=== PATIENT | female | born 1960 | race Caucasian/White ===

== ENCOUNTER → 2020-01-17 13:29 | Outpatient (CLI) | payer OTHER, SELFPAY ==
--- NOTE | 2020-01-17 13:37 | XR_ITS ---
PROCEDURE: XR FOOT RT MIN 3V CLINICAL INDICATION: RT FOOT EDEMA COMPARISON: FTL3 FOOT-LT-3 VIEWS from 04/26/2013 FINDINGS: No fracture or dislocation. No lytic or blastic change. There is normal mineralization. The joint spaces are well-preserved. No significant degenerative/arthritic changes. No erosive changes evident. Other findings:None. IMPRESSION: No acute findings. Dictated by: Raz Horne MD 01/17/2020 15:16 Electronically signed by Raz Horne MD in [place] 01/17/2020 15:16
== END ==
PROVIDERS: PCP Family Medicine; Visit Provider Family Medicine
DX: R60.0 Localized edema (principal)
CPT/HCPCS: 73630

== ENCOUNTER → 2021-02-03 12:34 | Outpatient (CLI) | payer OTHER, SELFPAY ==
[2021-02-03 13:12] LABS: Basophils # 0.1 K/mm3 (0-0.2); Basophils % 0.6 % (0.1-2.0); Eosinophils # 0.4 K/mm3 (0.0-0.4); Eosinophils % 3.9 % (0.1-12.0); Hematocrit 43.4 % (37.0-47.0); Hemoglobin 14.8 g/dL (12.2-16.2); Lymphocytes # 2.6 K/mm3 (0.7-4.5); Lymphocytes % 24.3 % (10-50); Mean Corpuscular HGB Conc 34.1 g/dL (31.8-35.4); Mean Corpuscular Hemoglobin 30.2 pg (27.0-31.2); Mean Corpuscular Volume 88.6 fl (81-99); Mean Platelet Volume 7.7 fl (7.4-10.4); Monocytes # 0.8 K/mm3 (0.1-1.0); Monocytes % 7.3 % (1.7-9.3); Neutrophils # 6.8 K/mm3 (1.8-7.8); Neutrophils % 63.8 % (37.0-80.0); Platelet Count 294 K/mm3 (142-424); Red Cell Distribution Width 13.6 % (11.5-17.5); White Blood Count 10.7 K/mm3 (4.8-10.8)
[2021-02-03 13:44] LABS: Anion Gap 11.7 mEq/L (5-15); Blood Urea Nitrogen 21 mg/dl (7-17); Calcium 10.1 mg/dl (8.4-10.2); Carbon Dioxide 30 mmol/L (22.0-30.0); Chloride 102 mmol/L (98-107); Estimated Glomerular Filt Rate 73 ml/min (>60); GFR (African American) 89 ML/MIN (>60); Glucose 96 mg/dl (74-100); Potassium 3.7 mmoL/L (3.5-5.1); Sodium 140 mmol/L (136-145)
[2021-02-03 13:55] LABS: Coronavirus 19 IgG Antibody Positive (Negative); Coronavirus 19 IgM Antibody Negative (Negative)
== END ==
PROVIDERS: Visit Provider Surgery
DX: Z01.812 Encounter for preprocedural laboratory examination (principal); Z20.822 Contact with and (suspected) exposure to COVID-19; L72.9 Follicular cyst of the skin and subcutaneous tissue, unspecified
CPT/HCPCS: 36415; 80048; 85025; 86328

== ENCOUNTER 2021-02-05 05:55 | Day surgery (SDC) | payer OTHER, SELFPAY ==
[2021-02-02 12:02] VITALS: BMI 37.4
[2021-02-05] VITALS (10 sets, daily range): BP systolic 107–161; BP diastolic 63–78; PULSE 66–85; RESP 16–18; TEMP 36.3–37.1; O2SAT 91–96
[2021-02-05 06:41] LABS: POC Glucose,Bedside 119 (70-110)
--- NOTE | 2021-02-05 08:16 | HMH.ANESCL ---
[facility] Anesthesia Checklist - Patient Identification Patient Identification: Arm Band - Structural Data Admitted From: Home Planned Operative Procedure/s: Excision Right Arm Cyst, Scalp Cyst Consent for Planned Operative Procedure(s) Verified: Yes Verified Documents: Surgical Consent, History and Physical - NPO Status Verified Time NPO: 00:00 - Additional verifications Anesthesia Reactions: No Hx Blood Transfusions: No Blood Transfusion Reaction: No - Airway Assessment C-Spine Mobility Assessed: Yes (mp2) TMJ Mobility Assessed: Yes Dentition: Good Dentition - Neurological Assessment Level of Consciousness: Awake, Alert - Anesthesia Plan Anesthesia Risk discussed: Yes Anesthesia Plan: Verified ASA Class: III Anesthesia Type: General [facility] History I have reviewed the patient's past medical history: Yes Medical History: Reports:: Diabetes Mellitus Type 2, Hyperlipidemia, Hypertension Denies:: Cancer, Diabetes Mellitus Type 1, Internal Pacemaker, MRSA, Seizures *Have you ever received a pneumonia vaccine?: No *Have you received a flu vaccine this season?: Yes Other Medical History: Reports: Arthritis. Denies: Blood Transfusion Reaction Anesthesia experience/problems:: nac Laterality Cases: Right: Breast Biopsy, Bilateral: Tonsillectomy Other Surgeries: Yes: Colonoscopy. No: Pacemaker Amputation: No Fractures: No - *Social History Last grade of school completed: High school graduate Smoking Status: Never smoker Alcohol Intake: current Alcohol Intake Frequency:: a few times a month Substance Use Type: denies use *Occupational Status:: employed Housing: house Household Members: spouse *Travel in the last 8 weeks: None Family Hx:: Heart Attack, Cancer, Hypertension, Stroke
--- NOTE | 2021-02-05 08:29 | P.OP_ITS ---
Date of procedure: 02/05/21 Pre-op Diagnosis:: 2.5 cm right upper extremity cyst 1.5 cm scalp cyst Post-op Diagnosis:: Same Procedure performed:: Excision of 2.5 cm cystic lesion from right upper extremity (just distal to elbow) Excision of 1.5 cm occipital scalp cyst Surgeon:: Rob Garcia MD EVIDENCE SPECIALIST:: Hermes Ponce Anesthesia: LMA Estimated blood loss (mL): 10 Operative findings:: Complex lobulated cystic lesion of right upper extremity excised primary closure Occipital scalp lesion excised with less than 1 mm margin (left open to allow for closure by secondary intent to minimize hair loss/shaving per patient wishes) Operative note:: After informed consent was obtained the patient was taken to the operating room and placed in the supine position. Her right upper extremity was prepped and draped in a sterile fashion. The occipital scalp region was also prepped and draped in a sterile fashion. After infiltration with local anesthetic an elliptical incision was made around the right upper extremity lesion. Combination of sharp dissection and dissection with electrocautery was utilized to excise the specimen in toto. It was passed off for pathologic evaluation. Electrocautery was utilized to achieve hemostasis. Skin was then reapproximated with interrupted 4-0 nylon. Attention was then turned to the occipital scalp cystic lesion. After infiltration local anesthetic an incision was made at the margin of the cyst with electrocautery. Electrocautery was utilized to transect through the subcutaneous tissue. And the cyst was excised in toto. It was passed off for pathologic evaluation. Electrocautery was utilized to achieve hemostasis and the wound was packed open. Patient's anesthetic agents were reversed and she was transferred to recovery in stable condition after removal of her laryngeal mask airway. Condition: stable Disposition: PACU Specimens:: Right upper extremity cystic lesion Scalp cyst Complications:: No immediate
--- NOTE | 2021-02-05 08:41 | HMH.ANESI ---
[facility] Anesthesia Record Part I Intake, IV Amount: 500 Estimated blood loss (mL): 10 Urine output (mL): 0 Blood Pressure: 107/63 SaO2: 91 Pulse Rate: 76 Respiratory Rate: 16 Temperature: 98.6 F Patient is:: Drowsy, Stable Stable to PACU at:: 08:40
[2021-02-05 09:04] LABS: POC Glucose,Bedside 126 (70-110)
--- NOTE | 2021-02-05 09:33 | HMH.ANESII ---
[facility] Anesthesia Record Part II Discharge Time: 09:10 Destination: Surgical Day Care (OP Surgery) PACU nurse assessment reviewed?: Yes Patient Condition:: Good Anesthesia Complications:: None Swallowing reflex intact?: Yes Cyanosis?: No Blood Pressure: 112/67 Pulse Rate: 71 Temperature: 98.1 F Mental Status: Alert & Oriented Pain level:: 0 Nausea and/or vomitting:: None Intake, IV Amount: 0
== END 2021-02-05 09:44 | disposition home or self-care (01) ==
LOC: OR 05:56
PROVIDERS: PCP Family Medicine; Visit Provider Surgery
PROC: (CPT 11403; principal; 2021-02-05 07:30)
DX: L72.9 Follicular cyst of the skin and subcutaneous tissue, unspecified (principal); E11.9 Type 2 diabetes mellitus without complications; E78.5 Hyperlipidemia, unspecified; I10 Essential (primary) hypertension; M19.90 Unspecified osteoarthritis, unspecified site; Z82.49 Family history of ischemic heart disease and other diseases of the circulatory system; Z82.3 Family history of stroke; Z80.9 Family history of malignant neoplasm, unspecified; Z88.1 Allergy status to other antibiotic agents; Z88.8 Allergy status to other drugs, medicaments and biological substances; Z79.84 Long term (current) use of oral hypoglycemic drugs; Z79.899 Other long term (current) drug therapy
CPT/HCPCS: 11403; 11422; 82962; 96374; J2405

== ENCOUNTER → 2021-02-16 08:00 | Outpatient (CLI) | payer OTHER, SELFPAY ==
--- NOTE | 2021-02-16 08:05 | XR_ITS ---
PROCEDURE: XR RIBS LT MIN 3V W CXR1V CLINICAL INDICATION: LT RIB PAIN COMPARISON: No exams were available for comparison FINDINGS: Multiple views of the left ribs show no obvious fracture. No lytic or blastic change. Consider follow-up in 7-[address] with 3D reformats if pain persists Frontal view of the chest shows no acute finding IMPRESSION: No acute findings. Dictated by: Raz Horne MD 02/16/2021 13:40 Raz Horne MD in [place] 02/16/2021 13:40
== END ==
PROVIDERS: PCP Family Medicine; Visit Provider Family Medicine
DX: R07.81 Pleurodynia (principal)
CPT/HCPCS: 71101

== ENCOUNTER → 2021-08-18 19:52 | Outpatient (CLI) | payer OTHER, SELFPAY ==
[2021-08-18 20:30] LABS: Coronavirus 19, PCR Not Detected (NotDetected); Influenza A, PCR Not Detected (NotDetected); Influenza B, PCR Not Detected (NotDetected)
== END ==
PROVIDERS: PCP Nurse Practitioner; Visit Provider Nurse Practitioner
DX: Z20.822 Contact with and (suspected) exposure to COVID-19 (principal)
CPT/HCPCS: C9803; U0003; U0005

== ENCOUNTER → 2021-10-15 09:08 | Outpatient (CLI) | payer OTHER, SELFPAY | PROVIDERS: PCP Family Medicine; Visit Provider Nurse Practitioner | DX: U07.1 COVID-19 (principal) | CPT/HCPCS: C9803; U0003; U0005 ==

== ENCOUNTER → 2022-07-05 11:27 | Outpatient (CLI) | payer OTHER, SELFPAY ==
--- NOTE | 2022-07-05 11:37 | XR_ITS ---
FINAL REPORT CLINICAL HISTORY: FOOT PAIN COMPARISON: January 17, 2020 FINDINGS: RIGHT FOOT Three views of the right foot demonstrate no acute fracture or dislocation. The visualized joint spaces are normally aligned. There are mild degenerative changes. There is a plantar calcaneal spur. The soft tissues are unremarkable. IMPRESSION: Mild degenerative changes with no acute bony abnormality. Reviewed, Interpreted and Dictated by Amari Clements III, MD Transcribed by Ibeth Valenzuela Authenticated and [facility]
--- NOTE | 2022-07-05 11:37 | XR_ITS ---
FINAL REPORT CLINICAL HISTORY: .acute right ankle pain FINDINGS: RIGHT ANKLE 3 views were obtained. There is no acute fracture or dislocation. There are mild degenerative changes. There is a plantar calcaneal spur. There is no soft tissue abnormality. IMPRESSION: No acute bony abnormality. Reviewed, Interpreted and Dictated by Amari Clements III, MD Transcribed by Ibeth Valenzuela Authenticated and [facility]
== END ==
PROVIDERS: PCP Family Medicine; Visit Provider Nurse Practitioner Family
DX: M79.671 Pain in right foot (principal); M25.571 Pain in right ankle and joints of right foot
CPT/HCPCS: 73600; 73620

== ENCOUNTER → 2022-09-27 11:43 | Outpatient (CLI) | payer OTHER, SELFPAY ==
--- NOTE | 2022-09-27 11:48 | XR_ITS ---
FINAL REPORT TECHNIQUE: Chest PA & Lateral CLINICAL HISTORY: cough COMPARISON: January 2021 FINDINGS: 2 views of the chest were performed. The heart size is normal. The mediastinum is within normal limits. There is mild left base opacity. There are no pleural effusions. There is no pneumothorax. The bony thorax appears intact. IMPRESSION: Mild left base opacity favors atelectasis over pneumonia. Reviewed, Interpreted and Dictated by Amari Clements III, MD Transcribed by Alex Castano Authenticated and [facility]
== END ==
PROVIDERS: PCP Family Medicine; Visit Provider Student in an Organized Health Care Education/Training Program
DX: R05.9 Cough, unspecified (principal)
CPT/HCPCS: 71046

== ENCOUNTER 2024-09-26 16:33 | Emergency (ER) | payer OTHER, SELFPAY ==
--- NOTE | 2024-09-26 16:38 | XR_ITS ---
PROCEDURE INFORMATION: Exam: XR Right Hand Exam date and time: 09/26/2024 5:15 PM Age: 64 years old Clinical indication: Injury or trauma; Fall; Blunt trauma (contusions or hematomas); Hand; Right; Additional info: Fell, injury to pinky finger TECHNIQUE: Imaging protocol: Radiologic exam of the right hand. Views: 3 or more views. COMPARISON: No relevant prior studies available. FINDINGS: Bones/joints: There are oblique lucencies through the mid shaft of the proximal phalanx of the right 5th finger. This likely represents an old healed fracture. An acute fracture without visible cortical breach cannot be entirely excluded as there are no comparison exams available at this institution. There are chronic osteoarthritic changes of the 1st metacarpal-trapezial joint space. There are chronic osteoarthritic changes at the DIP joints of the 2nd and 3rd fingers. The carpal bones are intact. The distal right radius and ulna is intact. Soft tissues: Normal. IMPRESSION: 1. Suspected old, healed fracture through the proximal phalanx of the right 5th digit. Please see discussion above. 2. Chronic osteoarthritic changes of the 1st metacarpal-trapezial joint space. 3. Chronic osteoarthritic changes of the DIP joints of the right 2nd and 3rd digits.
[2024-09-26 18:15] VITALS: BP 108/64; PULSE 76; RESP 19; TEMP 36.9; O2SAT 98; BMI 41.5
--- NOTE | 2024-09-26 18:29 | ED_ITS ---
Discharge Plan Disposition Patient Disposition: Home, Self-Care Condition: Good Prescriptions Prescriptions: No Action hydrochlorothiazide 25 mg tablet 25 mg PO DAILY pravastatin 80 mg tablet 80 mg PO DAILY metoprolol succinate 50 mg tablet extended release 24 hr 50 tab PO DAILY loratadine [Claritin] 10 mg tablet 10 mg PO DAILY metformin 1,000 mg tablet 500 mg PO BID linagliptin 5 mg tablet 5 mg PO DAILY losartan 50 mg tablet 50 mg PO DAILY Jardiance 25 mg tablet 25 mg PO DAILY wciewcsazfkafpm-wzduixwdm-LA [Bromfed DM] 2-30-10 mg/5 mL syrup 7.5 ml PO Q4-6H PRN (Reason: sinus symptoms) Qty: 200 0RF methylprednisolone 4 mg tablets,dose pack See Rx Instructions PO PER PKG DIR Qty: 21 0RF Rx Instructions: PO PER PKG DIR doxycycline hyclate 100 mg capsule 100 mg PO BID 7 Days Qty: 14 0RF Referrals Follow up/Referrals: Rajat Nascimento MD [Primary Care Provider] - See instructions Activity Restrictions/Add. Instructions Additional Instructions/Restrictions: RICE, Rest the extremity, Ice 15-20 minutes 3-4 times daily, Compress- wear the corona wrap as discussed as much as possible to help reduce swelling and pain, Elevate the extremity when at rest *Corona wrap is for support and help control swelling, use it except in the shower. Be sure that is not to tight but not to loose either *Elevate when resting? *Ibuprofen 600-800mg every 6-8 hours as needed for pain an inflammation. If need something more can take Tylenol in between doses of Ibuprofen to help Immediately follow up with your family doctor for new or worsening of symptoms, or no noticeable improvement over the next 3-5 days Clinical Impressions Clinical Impression: Contusion of finger Instructions Patient Instructions: DI for Finger Sprain, Finger Sprain Print Language Print Language: Italian Discharge ED Provider: Lisseth Villegas [facility] HPI General Stated complaint: AO 09/26/24 1534 Injury right little finger Mode of Arrival: Ambulatory Source of Information: Patient Limitations: No Limitations Time Seen by Provider: 09/26/24 18:29 Description of Symptoms (Recalled from Triage Doc. by RN): PATIENT STATES SHE TRIPPED ON A BAG TODAY AND INJURED HER RIGHT PINKY FINGER HEENT Symptoms (Recalled from RN notes): No Resp Symptoms (Recalled from RN notes): No Skin Symptoms (Recalled from RN notes): No MS Symptoms (Recalled from RN notes): Yes Functional Status (Recalled from RN notes): WNL History of Present Illness Provider Complaint: Patient states that she was at home and was in the spare bedroom when she tripped on a bag and hurt her right little finger States that it hurts when she bends it or moves it certain ways so she came in to get it checked worried she may have broken her finger Related Data Home Medications ?Medication ?Instructions ?Recorded ?Confirmed hydrochlorothiazide 25 mg tablet 25 mg PO DAILY High blood pressure 01/22/20 09/26/22 loratadine 10 mg tablet (Claritin) 10 mg PO DAILY allergies 01/22/20 09/26/22 metoprolol succinate 50 mg 50 tab PO DAILY High blood pressure 01/22/20 09/26/22 tablet,extended release 24 hr pravastatin 80 mg tablet 80 mg PO DAILY Cholesterol 01/22/20 09/26/22 empagliflozin 25 mg tablet 25 mg PO DAILY Diabetes 01/27/21 09/26/22 (Jardiance) linagliptin 5 mg tablet 5 mg PO DAILY Diabetes 01/27/21 09/26/22 losartan 50 mg tablet 50 mg PO DAILY High blood pressure 01/27/21 09/26/22 metformin 1,000 mg tablet 500 mg PO BID Diabetes 01/27/21 09/26/22 Previous Rx's ?Medication ?Instructions ?Recorded tzizjjewxcaxzlw-enmgonzrufavhpv-ZK 7.5 ml PO Q4-6H PRN sinus symptoms 09/26/22 2 mg-30 mg-10 mg/5 mL oral syrup #200 mL (Bromfed DM) methylprednisolone 4 mg tablets in See Rx Instructions PO PER PKG DIR 09/26/22 a dose pack #21 tabs doxycycline hyclate 100 mg capsule 100 mg PO BID 7 days #14 caps 09/30/22 Allergies Allergy/AdvReac Type Severity Reaction Status Date / Time bacitracin (From Neosporin Allergy Verified 09/26/22 15:22 ([id number])) erythromycin base Allergy Verified 09/26/22 15:22 levofloxacin (From Levaquin) Allergy Verified 09/26/22 15:22 neomycin (From Neosporin Allergy Verified 09/26/22 15:22 ([id number])) polymyxin B (From Neosporin Allergy Verified 09/26/22 15:22 ([id number])) Worker's Comp Is this a Worker's Comp case?: No [facility] Disclaimer: The information contained in this section may have been updated after the patient was seen, as this information can be updated by other users. Social History Smoking Status: Never smoker alcohol intake: current alcohol intake frequency: a few times a month substance use type: denies use current occupational status: employed Travel in the last 8 weeks: None household members: spouse housing: house current occupation: eye call center professional caffeine: Yes Have you lived/traveled outside [place] in past 30 days?: No Contact w/someone who lives/traveled outside [place] past 30 days?: No Exposure to someone with infectious disease in past 14 days?: No Do you have a fever (greater than 100.4 F or 38 C)?: No Have you tested positive for COVID-19: No Exposed to someone with COVID-19 in past 14 days?: No Do you have a sore throat?: No Do you have a cough?: No Do you have any weakness?: No Do you have any diarrhea?: No Are you experiencing any unusual bleeding?: No Do you have any muscle aches/pain?: No Do you have any abdominal pain?: No Are you experiencing loss of taste or smell?: No ROS Obtained: Yes All systems reviewed & no additional complaints except as documented and Yes Systems reviewed as appropriate & no additional complaints except as documented Constitutional Constitutional: Reports system reviewed and no additional complaints, except as documented and Reports as per HPI ENT Ears, Nose, Mouth, and Throat: Reports system reviewed and no additional complaints, except as documented and Reports as per HPI Cardiovascular Cardiovascular: Reports system reviewed and no additional complaints, except as documented and Reports as per HPI Respiratory Respiratory: Reports system reviewed and no additional complaints, except as documented and Reports as per HPI Gastrointestinal Gastrointestingal: Reports system reviewed and no additional complaints, except as documented and as per HPI Musculoskeletal Musculoskeletal: Reports system reviewed and no additional complaints, except as documented, Reports as per HPI and Reports other Comments: right little finger injury after falling earlier at home Physical Exam General General appearance: alert and in no apparent distress ENT ENT exam: Present mucous membranes moist Respiratory Respiratory exam: Present normal lung sounds bilaterally; Absent respiratory distress or wheezes Cardiovascular Cardiovascular exam: Present regular rate, normal rhythm and normal heart sounds Expanded Upper Extremity Exam Right: Hand L/R back image: 2 1. reports pain with movement, mild bruising and swelling noted Neurological Exam Neurological exam: Present alert, oriented X3 and normal gait Medical Decision Making Medical Records Screening: Per USPSTF and CDC recommendations, given the prevalence of disease in our region, it is our hospital?s policy to screen for HIV and viral Hepatitis for all patients aged 18 and over and those with ongoing risk factors. Donaldo Inquiry Pt receiving controlled substance: No Donaldo was queried for this patient: No Vital Signs: 09/26/24 18:15 Temperature 98.5 F Temperature Source Oral Pulse Rate [Left Brachial] 76 Respiratory Rate 19 Blood Pressure [Left Arm] 108/64 L Blood Pressure Mean [Left Arm] 78 Blood Pressure Source [Left Arm] Automatic Cuff Blood Pressure Position [Left Arm] Sitting 02 Sat by Pulse Oximetry 98 Oxygen Delivery Method Room Air Orders (Tests/Meds): ORDERS Category Date Time Status XR hand RT min 3V Stat Exams 09/26/24 16:38 Completed Radiology Data #1: Image(s): Hand Image Reviewed: Yes I have reviewed radiologist's interpretation IMPRESSION: 1. Suspected old, healed fracture through the proximal phalanx of the right 5th digit. Please see discussion above. 2. Chronic osteoarthritic changes of the 1st metacarpal-trapezial joint space. 3. Chronic osteoarthritic changes of the DIP joints of the right 2nd and 3rd digits.
[2024-09-26 18:48] VITALS: BP 108/64; PULSE 76; RESP 19; TEMP 36.9; O2SAT 98
== END 2024-09-26 18:50 | disposition home or self-care (01) ==
PROVIDERS: Emergency Provider Nurse Practitioner; PCP Family Medicine
DX: S60.00XA Contusion of unspecified finger without damage to nail, initial encounter (principal); M79.644 Pain in right finger(s); W22.8XXA Striking against or struck by other objects, initial encounter; Y93.89 Activity, other specified; Y92.003 Bedroom of unspecified non-institutional (private) residence as the place of occurrence of the external cause
CPT/HCPCS: 73130; 99212; G0381

== ENCOUNTER 2025-08-26 11:00 | Outpatient (RCR) | payer MEDICARE, OTHER, SELFPAY | END 2025-08-26 23:59 | disposition home or self-care (01) | LOC: PT 11:00 | PROVIDERS: PCP Family Medicine; Visit Provider Internal Medicine Gastroenterology | DX: Z47.89 Encounter for other orthopedic aftercare (principal); Z96.651 Presence of right artificial knee joint | CPT/HCPCS: 97110; 97140; 97162 ==

== ENCOUNTER 2025-09-18 10:00 | Outpatient (RCR) | payer MEDICARE, OTHER, SELFPAY | END 2025-09-18 23:59 | disposition home or self-care (01) | LOC: PT 10:00 | PROVIDERS: PCP Family Medicine; Visit Provider Family Medicine | DX: Z96.651 Presence of right artificial knee joint (principal) | CPT/HCPCS: 97110; 97140 ==